=== PATIENT | female | born 1990 | race Caucasian/White ===

== ENCOUNTER 2024-04-17 12:59 | Emergency (ER) | payer MEDICAID, SELFPAY ==
[2024-04-17 14:00] VITALS: BP 110/73; PULSE 91; RESP 16; TEMP 37; O2SAT 96
--- NOTE | 2024-04-17 14:00 | EKG_ITS ---
[facility] Test Date: 2024-04-17 Pat Name: ANIKA MINOR Department: Room: - Gender: Female [employer]: : 1990 Requested By: Mathtew Olmstead Order Number: [id number] Reading MD: Matthew Olmstead Measurements Intervals [place] Rate: 82 P: 77 WV: 136 QRS: 74 QRSD: 87 T: 75 QT: 353 QTc: 414 Interpretive Statements SINUS RHYTHM No previous ECG available for comparison /store/S0/[id number].pdf
--- NOTE | 2024-04-17 14:00 | XR_ITS ---
EXAMINATION: CT abdomen pelvis wo con ORDERING PROVIDER: Matthew Morrow NP HISTORY: RLQ abd pain TECHNIQUE: Without intravenous or oral contrast, CT was used in the volumetric, helical imaging acquisition of the abdomen and pelvis with 2-D and 3-D reformats generated on a separate workstation and submitted for interpretation. Institutional dose reducing protocols were utilized. Evaluation of hollow viscus and solid viscera is limited secondary to lack of intravenous and oral contrast. RADIATION DOSE: DLP 268 mGy-cm COMPARISON: None. FINDINGS: LIVER: Mild diffuse hepatic steatosis. BILIARY: Unremarkable. PANCREAS: Unremarkable. SPLEEN: Unremarkable. Incidental subcentimeter splenule. ADRENAL GLANDS: Unremarkable. KIDNEYS: Unremarkable. URETERS: Unremarkable. BLADDER: Unremarkable. CT provides limited evaluation of the urinary bladder. HOLLOW VISCUS: Not abnormally distended. Moderate volume inspissated stool in the colon. Appendix nondilated. Grossly unremarkable. VASCULATURE: Limited evaluation without contrast. Grossly unremarkable. PELVIS: There is a 2.9 cm fluid-density lesion associated with the right ovary/adnexa, probably a dominant follicle. Recommend hygiene product is present. There is trace free fluid in the pelvis. There is mild to moderate fat stranding about the cervix and lower uterus. LYMPH NODES: Limited evaluation without contrast. Grossly unremarkable. LUNG BASES: Normal. BONES: 7 mm probable bone island right sacrum. 4 mm bone island right proximal femoral shaft. ABDOMINAL WALL: Normal. IMPRESSION: 1. Mild inflammatory changes about the cervix/lower uterus. This may be due to patient's menstrual status or other underlying process such as pelvic inflammatory disease. 2. Moderate colonic stool burden.
--- NOTE | 2024-04-17 14:02 | EDRME_ITS ---
Rapid Medical Screening Exam [facility] Arrival date/time: 04/17/24 12:59 CC: Right lower quadrant abdominal pain HPI onset this morning with progressive increase in severity no nausea or vomiting no prior history of similar events. Currently pain is 8 on a 10 scale. Stooped gait. In moderate discomfort. Chief Complaint: Abdominal Pain Time Seen by Provider: 04/17/24 13:58 Vital signs: Vital Signs Temperature 98.6 F 04/17/24 14:00 Pulse Rate 91 04/17/24 14:00 Respiratory Rate 16 04/17/24 14:00 Blood Pressure 110/73 04/17/24 14:00 Pulse Oximetry (%) 96 04/17/24 14:00 Oxygen Delivery Method Room Air 04/17/24 14:00
[2024-04-17 14:42] LABS: Collection Type, Urine Clean Catch; Squamous Epithelial Cell,Urine 0 /hpf (0-5)
[2024-04-17 14:55] LABS: Bilirubin,Urine Negative (Negative); Blood,Urine 3+ (Negative); Color,Urine Yellow (Lt Yel-Yel); Glucose, Urine Negative (Negative); Ketones,Urine 1+ (Negative); Leukocyte Esterase,Urine Positive (Negative); Nitrite,Urine Negative (Negative); Protein,Urine 2+ (Neg - Trace); RBC,Urine 471 /hpf (0-3); Specific Gravity,Urine 1.023 (1.001-1.035); Urobilinogen,Urine Negative mg/dL (0.0-1.0); WBC,Urine 885 /hpf (0-5)
[2024-04-17 15:10] LABS: Basophils % (Auto) 0 % (0-2.5); Eosinophils # (Auto) 0.1 Thou/mm3 (0.0-0.5); Eosinophils % (Auto) 1 % (0-10); Hematocrit 38.5 % (36.0-46.0); Hemoglobin 13.5 g/dL (12.0-16.0); Immature Granulocytes % (Auto) 0 % (0-0); Immature Granulocytes Auto 0.03 Thou/mm3 (0.00-0.00); Lymphocytes # (Auto) 1.5 Thou/mm3 (1.0-4.8); Lymphocytes % (Auto) 12 % (10-50); Mean Corpuscular HGB Conc 35.1 g/dl (31.0-37.0); Mean Corpuscular Volume 89 fL (80-100); Monocytes # (Auto) 0.6 Thou/mm3 (0.0-0.8); Monocytes % (Auto) 5 % (0-12); Neutrophils # (Auto) 10.3 Thou/mm3 (1.8-7.7); Neutrophils % (Auto) 82 % (37-80); Nucleated Red Blood Cell % 0 /100 WBC (0); Platelet Count 237 Thou/mm3 (140-440); RDW Standard Deviation 38.4 fL (36.4-46.3); Red Blood Count 4.35 Miln/mm3 (4.00-5.20); White Blood Count 12.6 Thou/mm3 (3.6-11.0)
[2024-04-17 15:14] LABS: Amphetamine/Methamp Scrn,U Positive (Negative); Barbiturate Screen,Urine Negative (Negative); Benzodiazepines Screen,Urine Negative (Negative); Benzoylecgonine Screen, Ur Negative (Negative); Fentanyl Screen,Urine Negative (Negative); Opiate Screen,Urine Negative (Negative); THC Screen,Urine Negative (Negative)
[2024-04-17 15:22] LABS: Clarity,Urine Turbid (Clear/Hazy)
[2024-04-17 15:25] LABS: INR 1.1 (0.9-1.3); Partial Thromboplastin Time 27.9 Seconds (22.0-36.0); Prothrombin Time 11.8 Seconds (9.0-12.2)
[2024-04-17 15:29] LABS: Alanine Aminotransferase 10 U/L (10-49); Albumin, Serum 4.1 gm/dL (3.5-5.0); Albumin/Globulin Ratio 1.8 (1.2-2.2); Alkaline Phosphatase 49 U/L (46-116); Anion Gap 8 (7-16); Aspartate Amino Transferase 13 U/L (0-34); BUN/Creatinine Ratio 10 Ratio (12-20); Blood Urea Nitrogen 8 mg/dL (9-23); Calcium 9.4 mg/dL (8.3-10.6); Calcium (Corrected) 9.4 mg/dL (8.5-10.1); Carbon Dioxide 25.5 mMol/L (20.0-31.0); Chloride 109 mMol/L (98-107); Creatinine (Component) 0.8 mg/dL (0.6-1.3); Globulin 2.3 gm/dL (2.3-3.5); Glucose 85 mg/dL (74-106); Lipase 28 U/L (12-53); Magnesium 1.9 mg/dL (1.6-2.6); Osmolality,Calculated 280 (275-295); Potassium 3.9 mMol/L (3.4-5.1); Sodium 142 mMol/L (136-145); Total Protein 6.4 gm/dL (5.7-8.2); eGFR > 60 See Note
[2024-04-17 15:56] LABS: HCG Qualitative,Urine Negative
[2024-04-17 15:59] LABS: B-Type Natriuretic Peptide < 20 pg/mL (0-100)
[2024-04-17] MEDS: SODIUM CHLORIDE 0.9% 1000 ML 1,000 ML 999 ML IV (16:03)
--- NOTE | 2024-04-17 17:24 | PD.EDADULT ---
ED General RME/HPI General Chief complaint: Abdominal Pain Stated complaint: RULE OUT APPENDICITIS Time Seen by Provider: 04/17/24 13:58 Arrival date/time: 04/17/24 12:59 CC: Right lower quadrant abdominal pain ongoing since this morning. Patient admits to vaginal discharge in the past several days. Denies fever chills shortness of breath difficulty breathing. RME / HPI RME / HPI narrative: 04/17/24 12:59 CC: Right lower quadrant abdominal pain HPI onset this morning with progressive increase in severity no nausea or vomiting no prior history of similar events. Currently pain is 8 on a 10 scale. Stooped gait. In moderate discomfort. Related Data Previous Rx's ?Medication ?Instructions ?Recorded clindamycin HCl 300 mg capsule 300 mg PO TID #21 caps 04/17/24 meloxicam 7.5 mg tablet 7.5 mg PO QDAY #10 tabs 04/17/24 metronidazole 500 mg tablet 500 mg PO BID 14 days #28 tabs 04/17/24 Allergies Allergy/AdvReac Type Severity Reaction Status Date / Time cephalexin Allergy Hives Verified 04/17/24 13:04 lactose Allergy Verified 04/17/24 13:04 Review of Systems Review of Systems Narrative Review of Systems: GEN: No fever, no chills, no weight loss EYES: No discharge, no visual changes, no pain HEENT: No ear pain, no congestion, no sore throat PULM: No shortness of breath, no cough, no congestion CV: No chest pain, no dyspnea on exertion, no palpitations GI: No nausea, no vomiting, no diarrhea, + pain, no constipation : No frequency, no urgency, no dysuria MUSC/SKEL: No joint pain, no back pain SKIN: No rash PSYCH: No hallucinations, no depression HEME/LYMPH: No easy bleeding or bruising tendencies NEURO: No weakness, no headache Past Medical History Social History SMOKING STATUS: Current every day smoker ED Exam Narrative Physical exam: [General: Moderate discomfort but not in any acute distress Head normocephalic HEENT: Within acceptable limits Neck is supple nontender Chest equal chest rise nontender to palpation Respiratory: Clear to auscultation no wheezes crackles or rubs CV: Rate rhythm is regular no murmurs rubs or clicks Abdomen diffuse lower abdominal tenderness with reflexive guarding throughout the abdomen no upper abdominal pain Back: No CVA tenderness no spinous process tenderness from cervical spine thoracic and lumbar spine Skin: Intact no petechiae rash induration ulceration or crepitus Extremities: Moving all extremity against resistance cap refill less than 2 seconds neurosensory intact Neuro: Awake alert oriented x3 Glascow coma 15 no focal deficits] Course Quality Measures none Orders Category Date Time Status EKG (ED ONLY) *Do not use* NOW Care 04/17/24 14:00 Completed NPO NOW Care 04/17/24 14:01 Completed Saline [Insert IV] NOW Care 04/17/24 14:00 Completed Diet NPO (NOW) Diet 04/17/24 14:[address] abdomen pelvis wo con Stat Exams 04/17/24 14:00 Completed EKG (ED Only) Stat Exams 04/17/24 14:00 Draft B-Type Natriuretic Peptide Stat Lab 04/17/24 14:45 Completed CBC Stat Lab 04/17/24 14:45 Completed Comprehensive Metabolic Panel Stat Lab 04/17/24 14:45 Completed Drug Screen,Urine Stat Lab 04/17/24 14:17 Completed HCG Qualitative,Urine Stat Lab 04/17/24 14:17 Completed Lipase Stat Lab 04/17/24 14:45 Completed Magnesium Stat Lab 04/17/24 14:45 Completed Partial Thromboplastin Time Stat Lab 04/17/24 14:45 Completed Prothrombin Time with INR Stat Lab 04/17/24 14:45 Completed Urinalysis Stat Lab 04/17/24 14:17 Completed Clindamycin [Cleocin] Med 04/17/24 17:26 Discontinued 300 mg PO X1 ONE Morphine Inj Med 04/17/24 14:01 Discontinued 4 mg IVP X1 ONE Ondansetron Inj [Zofran Inj] Med 04/17/24 14:01 Discontinued 4 mg IV X1 ONE Sodium Chloride 0.9% 1000 ml [Ns] 1,000 ml Med 04/17/24 14:01 Discontinued IV 999 mls/hr metroNIDAZOLE [Flagyl] Med 04/17/24 17:26 Discontinued 500 mg PO X1 ONE Vital Signs Vital signs: Vital Signs Temperature 98.6 F 04/17/24 14:00 Pulse Rate 91 04/17/24 14:00 Respiratory Rate 16 04/17/24 14:00 Blood Pressure 110/73 04/17/24 14:00 Pulse Oximetry (%) 96 04/17/24 14:00 Oxygen Delivery Method Room Air 04/17/24 14:00 MDM Patient data External records reviewed:: [facility] previous records Clinical information provided by:: none Social determinants that could affect healthcare access:: none Patient has the following chronic illnesses:: None How is presenting disease/condition affected by chronic disease/condition?: uneffected by Evaluation data The following diagnostics were reviewed and interpreted by me:: lab results and radiology exam(s) Lab and/or radiology exams considered but not ordered:: CT shows inflamed cervix suspicious for inflammatory disease CBC shows mild leukocytosis of 12.6 H&H is unremarkable no thrombocytopenia Coags within acceptable limits CMP shows no electrolyte imbalances renal impairment transaminitis. T. bili of 2.0. Interpretation Summary: I suspect this is all bacterial vaginosis secondary to patient's oral presentation as well as a CT will start the patient on Cipro and Flagyl. Medications Medications considered but not ordered:: None Medication administrations:: Medication Administration History Discontinued Medications Clindamycin HCl (Clindamycin 150 Mg Capsule) 300 mg PO X1 ONE Stop: 04/17/24 17:27 Last Admin: 04/17/24 17:45 Dose: 300 mg Documented By: JOSE L Sodium Chloride (Ns) 1,000 mls @ 999 mls/hr IV .Q1H1M ONE Stop: 04/17/24 15:01 Last Infusion: 04/17/24 17:06 Dose: Infused Documented By: JOSE L Admin: 04/17/24 16:03 Dose: 999 mls/hr Documented By: ALYSSIA Metronidazole (Metronidazole 250 Mg Tablet) 500 mg PO X1 ONE Stop: 04/17/24 17:27 Last Admin: 04/17/24 17:45 Dose: 500 mg Documented By: JOSE L Morphine Sulfate (Morphine Sulf Inj 10 Mg/Ml Vial) 4 mg IVP X1 ONE Stop: 04/17/24 14:02 Last Admin: 04/17/24 15:50 Dose: Not Given Documented By: ALYSSIA Non-Admin Reason: Patient Refused Ondansetron HCl (Ondansetron Inj 2 Mg/Ml Inj 2 Ml) 4 mg IV X1 ONE; Protocol Stop: 04/17/24 14:02 Last Admin: 04/17/24 15:51 Dose: Not Given Documented By: ALYSSIA Non-Admin Reason: Patient Refused None Consultations Consultation(s) initiated? (list below): No Diagnosis Differential Diagnosis ED Complaint MDM: Appendicitis diverticulitis bacterial vaginitis Most likely diagnosis given after review of the tests above:: Bacterial vaginitis lower abdominal pain Admission Indicated Admission indicated?: not indicated Explain why admission is indicated or not indicated:: Stable for discharge Admission Request Was there a request for admission?: No Disposition Plan Disposition Plan: Discharge Discharge Attestation Discharge Attestation: The patient and all family members were given an opportunity to ask questions and understood the discharge instructions. Discharge instructions specifically effects, indications for sooner follow up or return to the emergency department, and the expected course of current diagnosis. Patient condition: Stable Medical Decision Making Differential Diagnosis Differential Diagnosis: Appendicitis diverticulitis bacterial vaginitis Lab Data 04/17/24 14:45 04/17/24 14:45 Labs: Lab Results 04/17/24 04/17/24 Range/Units 14:17 14:45 WBC 12.6 H (3.6-11.0) Thou/mm3 RBC 4.35 (4.00-5.20) Miln/mm3 Hgb 13.5 (12.0-16.0) g/dL Hct 38.5 (36.0-46.0) % MCV 89 (80-100) fL MCH 31.0 (25.0-35.0) pg MCHC 35.1 (31.0-37.0) g/dl RDW Std Deviation 38.4 (36.4-46.3) fL Plt Count 237 (140-440) Thou/mm3 Neut % (Auto) 82 H (37-80) % Lymph % (Auto) 12 (10-50) % [place] % (Auto) 5 (0-12) % Eos % (Auto) 1 (0-10) % Baso % (Auto) 0 (0-2.5) % Neut # (Auto) 10.3 H (1.8-7.7) Thou/mm3 Lymph # (Auto) 1.5 (1.0-4.8) Thou/mm3 [place] # (Auto) 0.6 (0.0-0.8) Thou/mm3 Eos # (Auto) 0.1 (0.0-0.5) Thou/mm3 Baso # (Auto) 0.0 (0.0-0.2) Thou/mm3 Immature Gran # (Auto) 0.03 H (0.00-0.00) Thou/mm3 Absolute Nucleated RBC 0.00 (0.00-0.00) Thou/mm3 Immature Gran % 0 (0-0) % Nucleated RBC % 0 (0) /100 WBC PT 11.8 (9.0-12.2) Seconds INR 1.1 (0.9-1.3) APTT 27.9 (22.0-36.0) Seconds Sodium 142 (136-145) mMol/L Potassium 3.9 (3.4-5.1) mMol/L Chloride 109 H (98-107) mMol/L Carbon Dioxide 25.5 (20.0-31.0) mMol/L Anion Gap 8 (7-16) BUN 8 L (9-23) mg/dL Creatinine 0.8 (0.6-1.3) mg/dL Estim Creat Clear Calc Not Performed. eGFR > 60 (60 - ) See Note BUN/Creatinine Ratio 10 L (12-20) Ratio Glucose 85 (74-106) mg/dL Calculated Osmolality 280 (275-295) Calcium 9.4 (8.3-10.6) mg/dL Corrected Calcium 9.4 (8.5-10.1) mg/dL Magnesium 1.9 (1.6-2.6) mg/dL Total Bilirubin 2.0 H (0.3-1.2) mg/dL AST 13 (0-34) U/L ALT 10 (10-49) U/L Alkaline Phosphatase 49 (46-116) U/L B-Natriuretic Peptide < 20 (0-100) pg/mL Total Protein 6.4 (5.7-8.2) gm/dL Albumin 4.1 (3.5-5.0) gm/dL Globulin 2.3 (2.3-3.5) gm/dL Albumin/Globulin Ratio 1.8 (1.2-2.2) Lipase 28 (12-53) U/L Ur Collection Type Clean Catch Urine Color Yellow (Lt Yel-Yel) Urine Clarity Turbid A (Clear/Hazy) Urine pH 7.0 (5.0-7.0) Ur Specific [place] 1.023 (1.001-1.035) Urine Protein 2+ A (Neg - Trace) Urine Glucose (UA) Negative (Negative) Urine Ketones 1+ A (Negative) Urine Blood 3+ A (Negative) Urine Nitrite Negative (Negative) Urine Bilirubin Negative (Negative) Urine Urobilinogen (Auto) Negative (0.0-1.0) mg/dL Ur Leukocyte Esterase Positive (Negative) Urine RBC 471 H (0-3) /hpf Urine WBC 885 H (0-5) /hpf Ur Squamous Epith Cells 0 (0-5) /hpf Urine Bacteria None (None) Urine HCG, Qual Negative Urine Opiates Screen Negative (Negative) Urine Fentanyl Screen Negative (Negative) Ur Barbiturates Screen Negative (Negative) U Amphetamin/Meth Scrn Positive A (Negative) U Benzodiazepines Scrn Negative (Negative) U Cocaine Metab Screen Negative (Negative) U Marijuana (THC) Screen Negative (Negative) Discharge Plan Plan Patient Disposition: HOME (Self Care) Patient condition on transfer: Stable Prescriptions/Referrals Prescriptions/Med Rec: New metronidazole 500 mg tablet 500 mg PO BID 14 Days Qty: 28 0RF clindamycin HCl 300 mg capsule 300 mg PO TID Qty: 21 0RF meloxicam 7.5 mg tablet 7.5 mg PO QDAY Qty: 10 0RF Referrals: Prosper Lunsford MD [Primary Care Provider] - In 1 week Problem List Clinical Impression: Bacterial vaginosis, Abdominal pain Patient/Caregiver Discharge Instructions Education Materials: Abdominal Pain, Bacterial Vaginosis Additional Instructions: Take the medication as prescribed follow-up with your primary care provider consider following up with an [employer]ANT if is worsening of symptoms return the emergency room medially for further evaluation. Print Language: [place] Stand Alone Forms: Angelina Award Info., Work/School Release, Patient Portal Info Letter CAREY/GINNY Supervising Physician CAREY/GINNY Supervising Physician: Matthew Morrow ENP
[2024-04-17] MEDS: CLINDAMYCIN 150 MG CAPSULE 300 MG PO (17:45)
[2024-04-17] MEDS: metroNIDAZOLE 250 MG TABLET 500 MG PO (17:45)
[2024-04-17 17:55] VITALS: BP 95/61; PULSE 87; RESP 18; TEMP 36.6; O2SAT 100
== END 2024-04-17 17:57 | disposition home or self-care (01) ==
PROVIDERS: Registered Nurse General Practice; Emergency Provider Emergency Medicine; PCP Family Medicine
DX: R10.31 Right lower quadrant pain (principal); N76.0 Acute vaginitis; B96.89 Other specified bacterial agents as the cause of diseases classified elsewhere
CPT/HCPCS: 36415; 74176; 80053; 80307; 81001; 81025; 83690; 83735; 83880; 85025; 85610; 85730; 93005; 96360; 99284; J7030; A9270